=== PATIENT | male | born 1940 | race Caucasian/White ===

== ENCOUNTER → 2018-10-05 | Outpatient (CLI) | payer OTHER, MEDICARE ==
[~2018-10-05] MED LIST: ACETAMINOPHEN500 M2 PO; AMOXICILLIN 50500 M1 PO; ASPIR 8181 MG PO; ATORVASTATIN CA80 MG PO; CORDARONE200 MG PO; COUMADIN 2.5MG2.5 M1 PO; FISH OIL 1,001000 M2 PO; HYDROCODON-ACE1 EAC7 PO; IRON159 MG PO; IRON325 M1 PO; MULTI VITAMIN1 EACH PO; NORVASC2.5 MG PO; PLAVIX 75 MG TA75 M1 PO; PROBIOTIC1 EAC1 PO; PROTONIX40 M1 PO; TOPROL XL25 MG PO
== END ==
LOC: RAD 11:43 → SPEECH 11:43 → RAD 16:05
DX: R13.12 Dysphagia, oropharyngeal phase (principal)

== ENCOUNTER → 2021-03-02 | Outpatient (CLI) | payer OTHER, MEDICARE | LOC: RAD 13:22 | PROVIDERS: ATTEND Internal Medicine Pulmonary Disease | DX: S22.49XA Multiple fractures of ribs, unspecified side, initial encounter for closed fracture (principal); X58.XXXA Exposure to other specified factors, initial encounter; Y93.89 Activity, other specified; Y92.89 Other specified places as the place of occurrence of the external cause; Y99.8 Other external cause status ==

== ENCOUNTER → 2021-03-11 | Outpatient (CLI) | payer OTHER, MEDICARE ==
--- NOTE | ~2021-03-11 | PFR/MVV ---
[facility] [place] [address] PULMONARY FUNCTION MVV/REPORT Name: HUMBERTO BETTS Room #: REG [facility]#: [id number] Admission: 03/11/21 Attend Phys: José Manuel Chew MD Discharge: Date of : 36 Report #: [id number] THIS REPORT FOR: //name// >> SPIROMETRY: (BTPS) Height: in cm Weight: lbs kg Exam Date: PRE-RX POST-RX PRED BEST %PRED BEST %PRED %CHG FVC LITERS . . . . . . FEV1 LITERS . . . . . . FEV1/FVC % . . . . . . MYR65-41% L/Sec . . . . . . PEF L/SEC . . . . . . FEF50/FIF50 UNITLESS . . . . . . MVV L/Min . . . f 1/Min . . . >> LUNG VOLUMES: (BTPS) PRE-RX POST-RX PRED AVG %PRED AVG %PRED %CHG VC Liters . . . . . . TLC Liters . . . . . . RV Liters . . . . . . RV/TLC % . . . . . . FRC PL Liters . . . . . . FRC N2 Liters . . . . . . ERV Liters . . . . . . IC Liters . . . . . . >> DIFFUSION: DLCO ml/Min/mmHg . . . . . . DL Nic ml/Min/mmHg . . . . . . DLCO/VA ml/Min/mmHg . . . . . . VA Liters . . . . . . COMMENTS: COMMENTS: >> RESISTANCE: [facility] [address] [place] [address] PULMONARY FUNCTION MVV/REPORT Name: HUMBERTO BETTS Room #: REG [facility]#: [id number] Admission: 03/11/21 Attend Phys: José Manuel Chew MD Discharge: Date of : 36 Report #: [id number] PRE-RX PRED AVG %PRED Raw Total cmH20/L/Sec . . . Raw Insp cmH20/L/Sec . . . Raw Exp cmH20/L/Sec . . . Raw cmH20/L/Sec . . . Gaw L/Sec/cmH20 . . . sRaw cmH20 Sec . . . sGaw l/cmH20 Sec . . . Vtq Liters . . . # = OUTSIDE 95% CONFIDENCE INTERVAL CALIBRATION: PRED: 3.00 ACTUAL: EXP 3.01 INSP 3.02 [id number] [place] [id number] N-[id number] >> INTERPRETATION/IMPRESSION: DOC #: [id number] Anthony Prather M.D. ATTENDING PHYSICIAN: Dr. José Manuel Chew. SPIROMETRY: FEV1 is 1.83 liters (80%), FVC is 2.16 liters (60%), FEV1/FVC ratio is 85%. Postbronchodilator therapy with no significant response. LUNG VOLUMES: Total lung capacity is 8.55 liters (152%). RV is 6.39 liters (251%). Diffusing capacity is 24%. 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 There is a restrictive process with the pulmonary function over the spirometry and air flow. There is no significant response to bronchodilator therapy. There is evidence of severe air trapping and mild hyperinflation. Diffusing capacity is severely decreased. Anthony Prather M.D. [facility]/[address] [address] PULMONARY FUNCTION MVV/REPORT Name: ALPESHHUMBERTO Room #: REG [facility]#: [id number] Admission: 03/11/21 Attend Phys: José Manuel Chew MD Discharge: Date of : 36 Report #: [id number] By: Anthony Prather MD /desiree
== END ==
LOC: PUL 10:51
PROVIDERS: ATTEND Internal Medicine Pulmonary Disease
DX: J98.11 Atelectasis (principal); J44.9 Chronic obstructive pulmonary disease, unspecified; R06.02 Shortness of breath

== ENCOUNTER → 2021-05-18 | Outpatient (CLI) | payer OTHER, MEDICARE ==
[2021-05-18 10:45] LABS: CALCIUM 8.9 mg/dL (8.5-10.1); CREATININE 0.9 mg/dL (0.7-1.3); POTASSIUM 4.2 mmol/L (3.5-5.1)
== END ==
LOC: CAT 09:46
PROVIDERS: ATTEND Internal Medicine Pulmonary Disease
DX: J47.9 Bronchiectasis, uncomplicated (principal); I51.7 Cardiomegaly; I25.10 Atherosclerotic heart disease of native coronary artery without angina pectoris; I77.810 Thoracic aortic ectasia; I27.20 Pulmonary hypertension, unspecified; K80.20 Calculus of gallbladder without cholecystitis without obstruction; I70.0 Atherosclerosis of aorta; M41.84 Other forms of scoliosis, thoracic region; J84.10 Pulmonary fibrosis, unspecified